=== PATIENT | male | born 1980 | race Caucasian/White ===

== ENCOUNTER 2020-01-30 16:21 | Emergency (ER) | payer SELFPAY ==
[2020-01-30] MEDS ORDERED: KETOROLAC TROMETHAMINE INJ 30 MG/ML VIAL IM ONE (16:37)
[2020-01-30] MEDS ORDERED: diazePAM 2 MG TAB PO ONE (16:38)
[2020-01-30 16:44] VITALS: O2SAT 97
--- NOTE | 2020-01-30 17:23 | RAD ---
EXAM: Lumbar Spine 3 Views CLINICAL INDICATION: 39-year-old male with acute pain adjacent to L1 on the RIGHT. TECHNIQUE: Three views of the lumbar spine were obtained in AP, lateral, and spot projections. COMPARISON: 09/14/2014. FINDINGS: Alignment of the lumbar spine is within normal limits. There is no subluxation or fracture deformity. Morphology of the vertebral bodies and intervertebral disc spaces is within normal limits. The remainder of the visualized bones are within normal limits. Large volume of fecal content present throughout the large bowel raising the question of fecal stasis or constipation. IMPRESSION: No acute radiographic abnormality. If the patient's symptoms persist, follow-up evaluation with CT or MRI may be considered. Electronically signed by: Cyndee Epstein MD 01/30/2020 5:22 PM CDT
--- NOTE | 2020-01-30 17:37 | ED.PDOC ---
History of Present Illness - General Chief Complaint: Back Pain or Injury Stated Complaint: R lower back/hip pain Time Seen by Provider: 01/30/20 16:25 Source: patient Exam Limitations: no limitations - History of Present Illness Initial Comments: The patient is a 39-year-old male presented emergency room secondary to low back pain that started within the last 48 hours. He has had low back pain before. He went to move a trailer and he felt a pop. Pain is adjacent to L1-L2. Pain does radiate down his right leg. No loss of sensation and no loss of motor function. No incontinence. The patient saw his primary care and had already been given a steroid shot and a muscle relaxer to take. He shows up here because he is not getting relief. Timing/Duration: other - 48 hours. Severity: severe Improving Factors: immobilization Worsening Factors: movement Associated Symptoms: denies symptoms Allergies/Adverse Reactions: Allergies Penicillins Allergy (Verified 01/30/20 16:42) Home Medications: Ambulatory Orders Acetaminophen W/ Codeine [Tylenol W/ CODEINE #3] 1 ea PO Q4-6H PRN #14 09/22/14 Tizanidine HCl [Zanaflex] 4 mg PO TID PRN #15 cap 09/22/14 Tramadol HCl 50 mg PO Q8HR PRN #30 tab 01/30/20 Review of Systems - Review of Systems Constitutional: States: no symptoms reported EENTM: States: no symptoms reported Respiratory: States: no symptoms reported Cardiology: States: no symptoms reported Gastrointestinal/Abdominal: States: no symptoms reported Genitourinary: States: no symptoms reported Musculoskeletal: States: back pain Skin: States: no symptoms reported Neurological: States: see HPI Endocrine: States: no symptoms reported All other Systems: No Change from Baseline Past Medical History (General) - Patient Medical History Hx Stroke: No Hx of COPD: No Hx Cardiac Disorders: No Hx Congestive Heart Failure: No Hx Hypertension: No Hx Diabetes: No Hx Cancer: No Hx MRSA: No Surgical History: other - Vaccination History Hx Influenza Vaccination: No Hx Pneumococcal Vaccination: No - Social History Hx Tobacco Use: Yes Hx Alcohol Use: Yes Hx Substance Use: No Hx Substance Use Treatment: No Hx Depression: No - Female History Patient is a Female of Child Bearing Age (10 -59 yrs old): No Patient : No Family Medical History - Family History Mother Family History: No Known Living Status: Still Living Physical Exam - Physical Exam General Appearance: Alert, Obvious distress Eye Exam: bilateral normal Ears, Nose, Throat: hearing grossly normal Neck: full range of motion, supple Respiratory: no respiratory distress, no accessory muscle use Cardiovascular/Chest: normal peripheral pulses, no edema Peripheral Pulses: radial,right: 2+, radial,left: 2+ Rectal Exam: deferred Back Exam: no vertebral tenderness, CVA tenderness (R) Extremity: normal range of motion, non-tender, normal inspection, no pedal edema, normal capillary refill 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 The patient had already received steroid dosing and a prescription for muscle relaxer from his primary care doctor. He received a dose of Toradol and another dose of a different muscle relaxer here. He is going to be written for tramadol for as needed use additionally as a painkiller. He can also take naproxen 400 mg twice a day with food for the next week. If symptoms are not improving over the next 24 to 48 hours then he can see a chiropractor. X-ray of the lumbar spine is reassuring. ER warnings are given. claudio [email or web address] [id number] 01/30/20 17:42 [facility] consulted - Results/Orders Results/Orders: X-ray of the lumbar spine shows no acute pathology. Departure - Departure Clinical Impression: Low back pain Qualifiers: Chronicity: acute Back pain laterality: right Sciatica presence: with sciatica Sciatica laterality: sciatica of right side Qualified Code(s): M54.41 - Lumbago with sciatica, right side Disposition: Discharge to Home or Self Care Condition: Fair Departure Forms: ED Discharge - Pt. Copy, Patient Portal Self Enrollment Instructions: DI for Back Pain With Sciatica Diet: regular diet Activity: increase activity as tolerated Referrals: [facility] [Primary Care Provider] - 1-2 Weeks Prescriptions: Tramadol HCl 50 mg PO Q8HR PRN #30 tab PRN Reason: Moderate Pain Home Medications: Ambulatory Orders Acetaminophen W/ Codeine [Tylenol W/ CODEINE #3] 1 ea PO Q4-6H PRN #14 09/22/14 Tizanidine HCl [Zanaflex] 4 mg PO TID PRN #15 cap 09/22/14 Tramadol HCl 50 mg PO Q8HR PRN #30 tab 01/30/20 Additional Instructions: The patient is a 39-year-old male presenting with right-sided low back pain with associated sciatica for the last 24 hours. The patient had already received steroid dosing and a prescription for muscle relaxer from his primary care doctor. He received a dose of Toradol and another dose of a different muscle relaxer here. He is going to be written for tramadol for as needed use additionally as a painkiller. He can also take naproxen 400 mg twice a day with food for the next week. If symptoms are not improving over the next 24 to 48 hours then he can see a chiropractor. X-ray of the lumbar spine is reassuring. Topical heat may prove beneficial along with stretching exercises and the use of an inverter to help decompress the spine. ER warnings are given.
[2020-01-30 18:32] VITALS: BP 107/91; TEMP 98.4
== END 2020-01-30 18:15 | disposition home or self-care (01) ==
LOC: ER 16:21
DX: M54.41 Lumbago with sciatica, right side (principal); Z87.891 Personal history of nicotine dependence
CPT/HCPCS: 72100; J1885

== ENCOUNTER → 2020-02-03 | Outpatient (CLI) | payer OTHER ==
--- NOTE | 2020-02-04 11:38 | MRI ---
EXAM DESCRIPTION: Lumbar Spine w/o Contrast : Magnetic Resonance Imaging. CLINICAL HISTORY: RADICULOPATHY COMPARISON: Normal spine radiographs January 29. TECHNIQUE: Multiplanar, multiple standard sequences, non contrast MRI, lumbar spine. FINDINGS: L5-S1: The disc is well visualized on axial T2 series 501, image 3. Disc desiccation and minimal disc space loss. Grade 1 anterolisthesis 2 mm. Bilateral deformity of the L5 pars interarticulares. Right posterior 5 mm protrusion of the disc encroaching on the right ventral canal and right foramen with compromise of the exiting right L5 nerve. Midline canal and left of midline unremarkable. Mild degenerative hypertrophy of the posterior flavum ligaments and facet joints (canal elements). Moderate to severe narrowing of the left foramen. L4-L5: Disc desiccation and minimal disc space loss. Grade 1 retrolisthesis 3 mm. Broad-based bulge 5 mm. Right paracentral granulation tissue or disc remnant abutting the right ventral thecal sac, and the right subarticular recess and descending right L5 nerve. Partial laminectomy on the left. No significant canal narrowing. Mild degenerative hypertrophy of the canal elements, right more than left, and moderate left foraminal narrowing. Extruded disc material from L3-4 coursing inferiorly with the right L4 nerve with right foraminal stenosis and compromise of the nerve. L3-L4: Disc desiccation and retrolisthesis 4 mm. Inferior disc extrusion coursing inferiorly with the descending right L4 nerve with impingement. Effacing the right subarticular recess with stenosis, and the right ventral thecal sac. Mild degenerative hypertrophy of the canal elements. Mild canal stenosis more on the right. And mild narrowing of the bilateral foramina. L2-L3: Normal signal in the disc. Disc space preserved. Minimal effusion bilateral facet joints. Mild canal narrowing. Mild right foraminal narrowing. L1-L2: Normal signal in the disc and disc space preserved. Canal elements negative. Canal and foramina are patent. T12-L1: Normal signal in the disc and disc space preserved. Canal elements negative. Foramina and canal are patent. Conus terminates at this level. No scoliosis. Paravertebral soft tissues are unremarkable.. Distal cord normal signal and caliber. Normal marrow signal in the remaining vertebral bodies and the posterior elements. Vertebral bodies are not compressed at any level. IMPRESSION: 1. Right posterior L3-L4 disc herniation with inferior extrusion impinging the descending right L4 nerve root and causing right subarticular recess stenosis, also impinging the thecal sac with right paracentral canal stenosis and encroachment on the right L4-L5 foramen with stenosis. 2. Posterior broad-based L4-L5 disc bulge, with disc granulation tissue or recurrent herniation and inferior extrusion encroaching on the right subarticular recess and the descending right L5 nerve. Grade 1 retrolisthesis. Prior partial left laminectomy. Right foraminal stenosis as described above. 3. Grade 1 anterolisthesis L5-S1. Bilateral L5 pars interarticulares spondylolysis. Right posterior protrusion of the disc with right foraminal stenosis and impingement right L5 nerve. Please see FINDINGS for additional details at other levels. Electronically signed by: Bib Grant MD 02/04/2020 11:36 AM CDT
== END ==
LOC: MRI 13:05
PROVIDERS: ATTEND Nurse Practitioner Family
DX: M54.16 Radiculopathy, lumbar region (principal); M51.86 Other intervertebral disc disorders, lumbar region; M51.26 Other intervertebral disc displacement, lumbar region; M47.896 Other spondylosis, lumbar region; M43.17 Spondylolisthesis, lumbosacral region; M48.061 Spinal stenosis, lumbar region without neurogenic claudication